=== PATIENT | female | born 1995 | race Two or more races ===

== ENCOUNTER 2018-03-11 02:40 | Inpatient (IN) | payer BC ==
[~2018-03-11] VITALS: Ht 149.9 cm; Wt 37.6 kg
--- NOTE | ~2018-03-11 | MORECARE ---
CASE MANAGEMENT DISCHARGE SUMMARY PATIENT: MAL DE LEON UNIT: [id number] ADM DATE: 03/11/18 AGE: 22 : [birth year] SEX: F ROOM/BED: D.2222 AUTHOR: NIMA COOK PHYSICIAN: REFERRING PHYSICIAN: MARISOL HOWELL MD DATE OF SERVICE: 03/14/18 Discharge Plan Patient Name: MAL DE LEON Facility: [facility]:[place] : 1995 Planned Disposition: Anticipated Discharge Date: Discharge Date: 03/12/2018 Expected LOS: 0 Initial Reviewer: [email or web address] Initial Review Date: 03/14/2018 Generated: 03/14/18 7:37 am Patient Name: MAL DE LEON Page [id number] at 0638 All edits/amendments must be made on the electronic document DICTATION DATE: 03/14/1837 ENERGY INFRASTRUCTURE ENGINEER: IAIN 03/14/1837 RPT#: [id number] DC DATE:03/12/18 STATUS: DIS IN [facility] [address] [place] [address] END OF REPORT
--- NOTE | ~2018-03-11 | EC ---
PATIENT:MAL DE LEON DATE OF SERVICE: 03/11/18 SEX: F MEDICAL RECORD: [id number] DATE OF : [birth year] LOCATION:[facility] AGE OF PATIENT: 22 ADMISSION DATE: 03/11/18 REFERRING PHYSICIAN: INTERPRETING PHYSICIAN: LISETTE GALINDO MD ECHOCARDIOGRAM REPORT ECHO CHARGES 4 ECHO COMPLETE Date: 03/11/18 CLINICAL DIAGNOSIS: CHF ECHOCARDIOGRAPHIC MEASUREMENTS (adult normal given) AC root (d.<3.7cm) 2.0 cm LV Septum d (<1.2 cm> 0.9 cm Valve Excursion 1.4 cm LV Septum (systole) 1.0 cm Left Atria (s.<4.0cm> 2.0 cm LVPW d(<1.2cm) 0.6 cm RV (d.<2.3cm) 2.5 cm LVPW (sytole) 1.0 cm LV diastole(<5.6CM) 3.1 cm MV E-F(>70mm/sec) cm LV systole 2.4 cm LVOT Diameter 1.6 cm MV exc.(>10mm) cm Est.ejection fraction (50-75%) % DOPPLER: LVIT cm/sec A 49 cm/sec E 76 cm/sec LA cm/sec RVSP 12.9 mmHg LVOT 78 cm/sec AOP1/2T m/s Asc. Ao 90 cm/sec RVOT 73 cm/sec RA cm/sec PA 83 cm/sec AV Gradient Peak 3.2 mmHg AV Mean 1.9 mmHg AV Area 1.2 cm MV Gradient Peak 2.6 mmHg MV Mean 1.0 mmHg MV Area cm COMMENTS: Inspector Clip On Sunglasses: [facility] Boiler Attendant: 1 Dr. Galindo TAPE# PACS Pericardial Effusion N DATE OF SERVICE: 03/11/2018 PROCEDURE: Echocardiogram. FINDINGS: 1. Left ventricle chamber size is within normal limits. Left ventricular systolic function is normal. Overall ejection fraction estimated at 60%. 2. Left atrium, right atrium, and right ventricle chamber sizes are within normal limits. 3. Valvular structures have normal structure and motion. ECHOCARDIOGRAM REPORT [id number] MAL DE LEON 4. Doppler interrogation reveals no significant valvular insufficiency or stenosis. Pulmonary systolic pressure is normal estimated at 13 mmHg. 5. No evidence of pericardial effusion or left ventricular thrombus. TRANSINT:[id number] Voice Confirmation ID: [id number] DOCUMENT ID: [id number] LISETTE GALINDO MD at 1059 CC: [id number] DICTATION DATE: 03/11/181802 CROP OR GRAIN FARMER: 03/11/182046 DIS IN 03/12/18 [place] [id number] [place] [id number]
[2018-03-11] MEDS ORDERED: K LYTE PO (02:55)
[2018-03-11 03:00] VITALS: BP 108/60
[2018-03-11 03:37] LABS: HCG URINE NEGATIVE (NEGATIVE)
[2018-03-11 03:38] LABS: APPEARANCE HAZY (CLEAR); BILIRUBIN NEGATIVE (NEGATIVE); COLOR STRAW (YELLOW); GLUCOSE NEGATIVE (NEGATIVE); KETONE NEGATIVE (NEGATIVE); NITRITE NEGATIVE (NEGATIVE); PH 7.5 (5.0-6.0); PROTEIN TRACE mg/dL (NEGATIVE); SPECIFIC GRAVITY 1.005 (1.005-1.020); UROBILINOGEN NORMAL (NORMAL)
[2018-03-11 03:46] LABS: AMORPHOUS SEDIMENT >1+ /lpf (NONE SEEN); BACTERIA MODERATE /hpf (NONE SEEN); EPITHELIAL CELLS OCC /hpf (0-5); GRANULAR CAST 0-5 /lpf (NONE SEEN); HYALINE CAST RARE /lpf (NONE SEEN); RED CELLS - URINE OCC /hpf (0-5); UDS - AMPHET NEGATIVE QUAL (NEGATIVE); UDS - BARB NEGATIVE QUAL (NEGATIVE); UDS - BENZO NEGATIVE QUAL (NEGATIVE); UDS - COCAINE NEGATIVE QUAL (NEGATIVE); UDS - OPIATE NEGATIVE QUAL (NEGATIVE); UDS - PCP NEGATIVE QUAL (NEGATIVE); UDS - THC NEGATIVE QUAL (NEGATIVE); WHITE CELLS - URINE OCC /hpf (0-5)
[2018-03-11 04:04] LABS: C-REACTIVE PROTEIN 12.1 mg/dL (0.0-0.9); THYROID STIMULATING HORMONE 2.37 uIU/mL (0.36-3.74)
[2018-03-11 05:44] LABS: POTASSIUM - SERUM 3.3 mmol/L (3.5-5.1); TROPONIN-I 0.027 ng/mL (0.000-0.060)
[2018-03-11 06:02] VITALS: BP 92/63; BMI 16.8
[2018-03-11 08:24] VITALS: BP 95/62
[2018-03-11 10:41] LABS: BASOPHILS 0 % (0-2); EOSINOPHILS 0 % (0-7); HEMATOCRIT 36.1 % (36.0-48.0); LYMPHOCYTES 27.7 % (15-50); MCHC 33.2 g/dL (31.0-37.0); MCV 84.3 fL (80.0-100.0); MEAN PLATELET VOLUME 10.6 fL (7.4-10.4); MONOCYTES 8.5 % (2-11); NEUTROPHILS 63.8 % (40-80); PLATELET COUNT 293 10x3/uL (130-400); RBC 4.28 10x6/uL (4.00-5.40); RDW 14.3 % (11.5-14.5); WBC 3.1 10x3/uL (4.8-10.8)
[2018-03-11 10:47] LABS: CALC OSMOLALITY 273 mosm/kg (275-300); CALCIUM 8.8 mg/dL (8.5-10.1); CARBON DIOXIDE 16.6 mmol/L (21.0-32.0); CHLORIDE - SERUM 107 mmol/L (98-107); CREATININE - SERUM 0.7 mg/dL (0.6-1.3); GLUCOSE 106 mg/dL (74-106); POTASSIUM - SERUM 3.4 mmol/L (3.5-5.1); SODIUM 138 mmol/L (136-145); UREA NITROGEN 8 mg/dL (7-18); eGFR NON AFRICAN AMERICAN > 90 mL/min (90-120)
[2018-03-11 11:03] VITALS: BP 101/64
[2018-03-11 13:22] VITALS: Ht 149.9 cm; Wt 37.6 kg
[2018-03-11 16:55] VITALS: BP 93/57
[2018-03-11 17:36] LABS: ERYTHROCYTE SEDIMENTATION RATE 52 mm/hr (0-20)
[2018-03-11 20:00] VITALS: BP 101/69
[2018-03-12 06:26] LABS: BASOPHILS 0 % (0-2); EOSINOPHILS 0.2 % (0-7); HEMATOCRIT 32.8 % (36.0-48.0); HEMOGLOBIN 11.1 g/dL (12-16); IMMATURE GRANULOCYTES 0.2 % (0-5); LYMPHOCYTES 29.1 % (15-50); MCHC 33.8 g/dL (31.0-37.0); MCV 82.6 fL (80.0-100.0); MEAN PLATELET VOLUME 10.8 fL (7.4-10.4); MONOCYTES 10.9 % (2-11); NEUTROPHILS 59.6 % (40-80); PLATELET COUNT 281 10x3/uL (130-400); RBC 3.97 10x6/uL (4.00-5.40); RDW 13.9 % (11.5-14.5)
[2018-03-12 06:27] LABS: WBC 6.1 10x3/uL (4.8-10.8)
[2018-03-12 06:59] LABS: ALKALINE PHOSPHATASE 84 U/L (46-116); ALT (SGPT) 18 U/L (10-68); BILIRUBIN - DIRECT 0.09 mg/dL (0.00-0.30); BILIRUBIN - INDIRECT 0.43 mg/dL (0.00-1.00); BILIRUBIN - TOTAL 0.52 mg/dL (0.2-1.3); CALC OSMOLALITY 267 mosm/kg (275-300); CALCIUM 8.2 mg/dL (8.5-10.1); CARBON DIOXIDE 16.8 mmol/L (21.0-32.0); CHLORIDE - SERUM 103 mmol/L (98-107); CREATININE - SERUM 0.8 mg/dL (0.6-1.3); FERRITIN 63 ng/mL (3-244); GLUCOSE 91 mg/dL (74-106); MAGNESIUM - SERUM 2.1 mg/dL (1.8-2.4); POTASSIUM - SERUM 3.3 mmol/L (3.5-5.1); SODIUM 135 mmol/L (136-145); UREA NITROGEN 8 mg/dL (7-18); eGFR NON AFRICAN AMERICAN > 90 mL/min (90-120)
[2018-03-12 07:09] LABS: % SATURATION 3 % (15-55); IRON 12 ug/dl (35-150); TOTAL IRON BIND CAPACITY 323 ug/dl (260-445); UNSAT IRON BIND CAPACITY 311 ug/dl (150-375)
[2018-03-12 08:19] VITALS: BP 94/59
[2018-03-12 11:07] VITALS: BP 102/69
[2018-03-12] MEDS ORDERED: CLEOCIN HCL150 MG PO (17:00)
[2018-03-12] MEDS ORDERED: FERROUS SULFAT325 MG PO (17:01)
[2018-03-12] MEDS ORDERED: MIRALAX17 GM PO (17:01)
[2018-03-13 09:19] LABS: FOLATE (FOLIC ACID) - SERUM 17.3 ng/mL (>3.0)
== END 2018-03-12 19:10 | disposition home or self-care (01) | DRG 690 ==
LOC: D.ER 02:40 → D.MS 03:48
PROVIDERS: Family Medicine; Internal Medicine Nephrology
DX: N39.0 Urinary tract infection, site not specified (principal); E46 Unspecified protein-calorie malnutrition; Z68.1 Body mass index [BMI] 19.9 or less, adult; E87.6 Hypokalemia; F41.8 Other specified anxiety disorders; I50.9 Heart failure, unspecified